=== PATIENT | female | born 1980 | race Caucasian/White ===

== ENCOUNTER 2021-07-28 13:27 | Outpatient (CLI) | payer OTHER, SELFPAY ==
--- NOTE | ~2021-07-28 | MMUS_ITS ---
EXAMINATION: MM diagnostic ander BI w charli, US breast LT limited HISTORY: Palpable left axillary abnormality. TECHNIQUE: Additional 3-D tomosynthesis images of the breasts were performed and synthetic 2-D images were generated. CAD analysis was submitted and interpreted. High resolution left axillary ultrasound was performed. COMPARISON: None BREAST PARENCHYMAL COMPOSITION: BREAST PARENCHYMAL COMPOSITION: There are scattered areas of fibroglandular density. FINDINGS: MAMMOGRAPHIC FINDINGS: There are no suspicious masses, calcifications or architectural distortion in either breast. There ar e benign-appearing bilateral axillary lymph nodes. ULTRASOUND: Targeted right axillary ultrasound: In the area of palpable concern there is a normal-appearing axill keven lymph node measuring 1.4 x 1.1 x 0.6 cm. No suspicious masses to suggest malignancy. IMPRESSION: 1. No evidence for malignancy in either breast. 2. Routine yearly screening mammogram and regular clinical breast examination are recommended. BI-RADS Category 2: Benign finding(s). Reviewed, dictated and finalized at location A. IMPRESSION: 1. No evidence for malignancy in either breast. 2. Routine yearly screening mammogram and regular clinical breast examination a re recommended. BI-RADS Category 2: Benign finding(s).
== END 2021-07-28 13:28 | disposition home or self-care (01) ==
LOC: ANHIMG 13:30
PROVIDERS: Visit Provider Obstetrics & Gynecology
DX: N63.21 Unspecified lump in the left breast, upper outer quadrant (principal)
CPT/HCPCS: 76642; 77062; 77066; G0279